=== PATIENT | male | born 1995 | race African-American/Black ===

== ENCOUNTER 2020-07-19 21:30 | Emergency (ER) | payer MEDICAID ==
[~2020-07-19] VITALS: Ht 170.2 cm; Wt 64.4 kg
[2020-07-19 21:40] VITALS: BP_SYST 138
[2020-07-19] MEDS ORDERED: QUEtiapine FUMARATE 100 MG TABLET PO ONE (23:00)
[2020-07-19] MEDS ORDERED: LORazepam 1 MG TABLET PO ONE (23:00)
[2020-07-19] MEDS ORDERED: QUEtiapine FUMARATE 100 MG TABLET ONE (23:08)
[2020-07-20 00:13] VITALS: BP_SYST 126
== END 2020-07-20 00:13 | disposition home or self-care (01) ==
LOC: SED 21:30
DX: F20.9 Schizophrenia, unspecified (principal); F15.988 Other stimulant use, unspecified with other stimulant-induced disorder; R41.0 Disorientation, unspecified; F10.10 Alcohol abuse, uncomplicated; Z59.0 Homelessness; Y90.0 Blood alcohol level of less than 20 mg/100 ml
CPT/HCPCS: 99283

== ENCOUNTER 2020-09-16 17:45 | Emergency (ER) | payer MEDICAID ==
[~2020-09-16] VITALS: Ht 170.2 cm; Wt 68.5 kg
[2020-09-16 17:57] VITALS: BP_SYST 126
--- NOTE | 2020-09-16 18:02 | NUR ---
Patient triaged and placed in waiting room. VSS and patient appears in no acute distress at this time. Accompanied by self , awaiting available bed, and MD notified of need for MSE.
== END 2020-09-16 18:10 | disposition left against medical advice (07) ==
LOC: SED 17:45
DX: E86.0 Dehydration (principal); Z53.21 Procedure and treatment not carried out due to patient leaving prior to being seen by health care provider